=== PATIENT | female | born 1970 | race Caucasian/White ===

== ENCOUNTER 2017-03-29 03:44 | Emergency (ER) | payer OTHER ==
[~2017-03-29] VITALS: Ht 162.6 cm; Wt 77.2 kg
[~2017-03-29 03:44] MED LIST: FLEXERIL10 MG PO; FLUPHENAZINE HCL5 MG PO; LEVOTHYROXINE75 MCG PO; LITHIUM CARBON300 MG PO; LITHOBID300 MG PO; LORTAB 5-325 M1 EACH PO; NAPROSYN500 MG PO; NORCO 5/3251 TABLET PO; PROZAC10 MG PO; SILVADENE20 GM TP; STELAZINE PO; STELAZINE5 MG PO
[2017-03-29] MEDS ORDERED: ERYTHROMYC1 APPLICAT BOTH EYES (04:16)
[2017-03-29 04:53] VITALS: BP 151/87
== END 2017-03-29 04:53 | disposition home or self-care (01) ==
LOC: EME 03:44
DX: S05.02XA Injury of conjunctiva and corneal abrasion without foreign body, left eye, initial encounter (principal); F31.9 Bipolar disorder, unspecified; Z88.0 Allergy status to penicillin
CPT/HCPCS: 99281; 99284